=== PATIENT | male | born 2000 ===

== ENCOUNTER → 2021-01-01 | Outpatient (REF) | payer OTHER ==
[2021-01-01 13:42] LABS: SEMEN APPEARANCE OPAQUE (OPAQUE); SEMEN VISCOSITY LIQUID (LIQUID); SEMEN VOLUME 3.6 ml (2.0-5.0)
[2021-01-01 13:43] LABS: SPERM CONCENTRATION 20.2 M/ml (>=15.0); WBC CONCENTRATION <=1 M/ml (<=1 M/ml)
== END ==
LOC: M LAB REF 13:32
PROVIDERS: ATTEND Specialist
DX: N46.9 Male infertility, unspecified (principal)